=== PATIENT | male | born 1960 | race Asian ===

== ENCOUNTER 2018-10-31 05:44 | Day surgery (SDC) | payer OTHER ==
[2018-10-31 06:30] LABS: ADD MAN DIFF? NO
[2018-10-31 06:32] LABS: BASOPHIL # 0.1 10^3/ul (0.0-0.1); BASOPHILS % 0.8 % (0.0-2.0); EOSINOPHILS # 0.4 10^3/ul (0.0-0.5); EOSINOPHILS % 5.4 % (0.0-7.0); HEMOGLOBIN 7.4 g/dl (14.0-18.0); LYMPHOCYTES # 0.9 10^3/ul (0.8-2.9); LYMPHOCYTES % 13.3 % (15.0-51.0); MEAN CORPUSCULAR HEMOGLOBIN 29.1 pg (29.0-33.0); MEAN CORPUSCULAR HGB CONC 30.8 g/dl (32.0-37.0); MEAN CORPUSCULAR VOLUME 94.5 fl (82.0-101.0); MEAN PLATELET VOLUME 9.8 fl (7.4-10.4); MONOCYTE # 0.7 10^3/ul (0.3-0.9); MONOCYTES % 10.7 % (0.0-11.0); NEUTROPHIL # 4.5 10^3/ul (1.6-7.5); NEUTROPHILS % 69.2 % (39.0-77.0); PLATELET COUNT 244 10^3/UL (140-415); RED BLOOD COUNT 2.54 10^6/ul (4.70-6.10); RED CELL DISTRIBUTION WIDTH 13.5 % (11.5-14.5)
[2018-10-31 06:32] LABS: WHITE BLOOD COUNT 6.5 10^3/ul (4.8-10.8)
[2018-10-31] MEDS ORDERED: LIDOCAINE 1% (MDV) 20 ML INJ (06:58)
[2018-10-31] MEDS ORDERED: HEPARIN 1000 UNITS/NS (A-LINE) 1,000 ML (06:58)
[2018-10-31] MEDS ORDERED: HEPARIN 1000 UNITS/ML 10 ML INJ (06:58)
[2018-10-31] MEDS ORDERED: FENTAnyl 50 MCG/ML VIAL (06:59)
[2018-10-31] MEDS ORDERED: MIDAZOLAM 1 MG/ML 2 ML INJ (06:59)
[2018-10-31] MEDS ORDERED: SOD CHLORIDE 0.9% 500 ML IV (07:00)
[2018-10-31] MEDS ORDERED: SOD CHLORIDE 0.9% 1,000 ML IV (07:00)
[2018-10-31 07:04] LABS: HOLD TRANSMISSIONS 1
[2018-10-31 07:20] LABS: INR 0.89; PROTIME 12.2 Sec (11.9-14.9)
[2018-10-31 07:21] LABS: PARTIAL THROMBOPLASTIN TIME 26.5 Sec (23.0-35.0)
[2018-10-31 07:25] LABS: ALANINE AMINOTRANSFERASE 19 IU/L (13-69); ALBUMIN 2.9 g/dl (3.3-4.9); ALBUMIN/GLOBULIN RATIO 1.11; ALKALINE PHOSPHATASE 62 IU/L (42-121); ANION GAP 6 (5-13); ASPARTATE AMINO TRANSFERASE 16 IU/L (15-46); BILIRUBIN,INDIRECT 0.1 mg/dl (0-1.1); BILIRUBIN,TOTAL 0.1 mg/dl (0.2-1.3); CALCIUM 8.8 mg/dl (8.4-10.2); CARBON DIOXIDE 24 mmol/L (21-31); CHLORIDE 113 mmol/L (97-110); Estimated GFR 8 mL/min (>60); GLUCOSE 111 mg/dl (70-220); POTASSIUM 4.9 mmol/L (3.5-5.1); SODIUM 143 mmol/L (135-144); TOTAL PROTEIN 5.5 g/dl (6.1-8.1)
[2018-10-31 07:32] LABS: BLOOD UREA NITROGEN 51 mg/dl (7-20); CREATININE 7.45 mg/dl (0.61-1.24)
[2018-10-31] MEDS ORDERED: CEFAZOLIN 1 GM/50 ML (PMX) 50 ML IVPB (07:38)
== END 2018-10-31 08:45 | disposition home or self-care (01) ==
LOC: CCL 05:44 → SDS 05:44 → CCL 08:45
DX: I12.0 Hypertensive chronic kidney disease with stage 5 chronic kidney disease or end stage renal disease (principal); N18.6 End stage renal disease; E11.9 Type 2 diabetes mellitus without complications; Z86.73 Personal history of transient ischemic attack (TIA), and cerebral infarction without residual deficits
CPT/HCPCS: 36558; 76937; 80053; 82962; 85025; 85610; 85730

== ENCOUNTER 2018-11-02 07:33 | Emergency (ER) | payer OTHER | END 2018-11-02 11:34 | disposition home or self-care (01) | LOC: E/R 07:33 | DX: T82.49XA Other complication of vascular dialysis catheter, initial encounter (principal); I12.0 Hypertensive chronic kidney disease with stage 5 chronic kidney disease or end stage renal disease; N18.6 End stage renal disease; Y73.2 Prosthetic and other implants, materials and accessory gastroenterology and urology devices associated with adverse incidents; Z79.82 Long term (current) use of aspirin | CPT/HCPCS: 99282; Z7502 ==